=== PATIENT | female | born 1950 | race Caucasian/White ===

== ENCOUNTER → 2016-10-10 | Outpatient (CLI) | payer OTHER ==
--- NOTE | 2016-10-10 14:46 | RADRPT ---
PROCEDURE: XR Left hip and pelvis. CLINICAL INDICATION: Left hip pain and pelvic pain. TECHNIQUE: 3 views. Frontal pelvis. Frontal and lateral left hip. COMPARISON: None. FINDINGS: There is no fracture or dislocation. The soft tissues are normal. There are moderate degenerative changes of the right hip with joint space narrowing and osteophytes. There are moderate to severe degenerative changes of the left hip with joint space narrowing, oste ophytes, subarticular sclerosis, subarticular cysts, and mild deformity. There is no other lytic lesion. There is no radiopaque foreign body. IMPRESSION: 1. Moderate degenerative changes of the right hip. 2. Moderate to severe degenerative changes of the left hip. RPTAT: QQ .Chris Haddad MD, MD Date Time Electronically viewed and signed by .Chris Haddad MD, on 10/10/2016 14:45 .R/
== END | disposition home or self-care (01) ==
LOC: HKI 10:39
PROVIDERS: ATTEND Orthopaedic Surgery
DX: M16.12 Unilateral primary osteoarthritis, left hip (principal); I10 Essential (primary) hypertension; Z96.643 Presence of artificial hip joint, bilateral
CPT/HCPCS: 73502

== ENCOUNTER → 2016-11-26 | Outpatient (CLI) | END | disposition home or self-care (01) | DX: M25.552 Pain in left hip (principal); M16.12 Unilateral primary osteoarthritis, left hip ==

== ENCOUNTER 2016-12-01 05:52 | Inpatient (IN) | payer OTHER ==
[2016-11-30 15:10] VITALS: Ht 165.1 cm; Wt 77.0 kg
[~2016-12-01] VITALS: Ht 165.1 cm; Wt 77.0 kg
[2016-12-01] VITALS (28 sets, daily range): BP systolic 85–136; BP diastolic 51–86; PULSE 44–98; RESP 8–20
[~2016-12-01 05:52] MED LIST: CEFAZOLIN 2GM/50 ML (PMX) 50 ML X1 BEFORE INCISION IVPB ONE; CELECOXIB 400 MG PO X1 DOSE PO ONE; EXPAREL NOTE (BUPIVICAINE LIPOSOMAL) XX SCH; ONDANSETRON 4 MG IV X 1 DOSE IV ONE; PREGABALIN 300 MG PO X1 PO ONE; TRANEXAMIC ACID 770 MG in SOD CHLORIDE 0.9% 100 ML IVPB ONE; TRANEXAMIC ACID 770 MG in SOD CHLORIDE 0.9% 92.3 ML IV ONE; oxyCODONE (CR) 10 MG TAB [oxyCONTIN] X1 DOSE PO ONE; traMADOL 50 MG TAB X 1 DOSE PO ONE
[2016-12-01] MEDS: BUPIVACAINE LIPOSOME/PF 266 MG/20 ML VIAL INFIL ONE ×2 (06:00→09:40)
[2016-12-01] MEDS: PAIN COCKTAIL-CEFUROXIME IRR ONE ×14 (06:00→09:40)
[2016-12-01] MEDS: LACTATED RINGER'S 1,000 ML IV SCH ×5 (06:07→22:40)
[2016-12-01] MEDS ORDERED: ACET500C5 PO (06:39)
[2016-12-01] MEDS ORDERED: EPHEDrine SULFATE 50 MG/5 ML SYG ONE (07:00)
--- NOTE | 2016-12-01 07:06 | HPN ---
Date/Time of Note Date/Time of Note DATE: 12/01/16 TIME: 07:05 Interval H&P Admission Note Pt. seen H&P reviewed: No system changes No changes from H&P on 11/22/16 by BHAVNA Curran MD Dec 01, 2016 07:06
[2016-12-01] MEDS ORDERED: SODIUM CL BACTERIOSTATIC 30 ML INJ ONE (07:15)
[2016-12-01] MEDS ORDERED: VANCOMYCIN 1 GM INJ ONE (07:15)
[2016-12-01] MEDS ORDERED: POLYMYXIN B 500000 UNIT INJ ONE (07:15)
[2016-12-01] MEDS ORDERED: BACITRACIN 50000 UNITS INJ ONE (07:21)
[2016-12-01] MEDS ORDERED: ROCURONIUM 50 MG INJ ONE (07:22)
[2016-12-01] MEDS ORDERED: NEOSTIGMINE 3 MG/3 ML SYRINGE ONE (07:22)
[2016-12-01] MEDS ORDERED: GLYCOPYRROLATE 0.4 MG INJ ONE (07:22)
[2016-12-01] MEDS ORDERED: PROPOFOL 20 ML ONE (07:22)
[2016-12-01] MEDS ORDERED: CEFAZOLIN 1 GM INJ ONE (07:22)
[2016-12-01] MEDS ORDERED: DEXAMETHASONE 4 MG/ML 1 ML INJ ONE (07:24)
[2016-12-01] MEDS ORDERED: FENTAnyl 50 MCG/ML VIAL ONE (07:24)
[2016-12-01] MEDS ORDERED: ONDANSETRON 4 MG INJ ONE (07:24)
[2016-12-01] MEDS ORDERED: MIDAZOLAM 1 MG/ML 2 ML INJ ONE (07:24)
[2016-12-01] MEDS ORDERED: OXYCODONE/ACETAMINOPHEN (5/325) TAB PO PRN ×2 (08:30)
[2016-12-01] MEDS ORDERED: IPRATROPIUM (NEB) 0.5 MG/2.5 ML AMP HHN PRN (08:30)
[2016-12-01] MEDS ORDERED: ONDANSETRON 4 MG INJ IV PRN ×2 (08:30→10:30)
[2016-12-01] MEDS ORDERED: TRIMETHOBENZAMIDE 100 MG/ML VIAL IM PRN (08:30)
[2016-12-01] MEDS ORDERED: ALBUTEROL 0.083% (NEB) 2.5 MG/3 ML AMP HHN PRN (08:30)
[2016-12-01] MEDS ORDERED: HYDROmorphONE (0.2 MG/ML) 10ML SYG IV PRN ×3 (08:30)
[2016-12-01] MEDS ORDERED: FENTAnyl 50 MCG/ML VIAL IV PRN ×3 (08:30)
[2016-12-01] MEDS ORDERED: DIPHENHYDRAMINE 50 MG INJ IV PRN (08:30)
[2016-12-01] MEDS ORDERED: LABETALOL HCL 20MG INJ IV PRN (08:30)
[2016-12-01] MEDS ORDERED: hydrALAzine 20 MG INJ IV PRN (08:30)
[2016-12-01] MEDS ORDERED: MIDAZOLAM 1 MG/ML 2 ML INJ IV PRN (08:30)
[2016-12-01] MEDS ORDERED: EPHEDrine SULFATE 50 MG/5 ML SYG IV PRN (08:30)
[2016-12-01] MEDS ORDERED: MEPERIDINE 25 MG INJ IV PRN (08:30)
[2016-12-01] MEDS ORDERED: ETOMIDATE 20 MG INJ ONE (08:32)
[2016-12-01] MEDS ORDERED: PROPOFOL 100 ML ONE (08:32)
[2016-12-01] MEDS ORDERED: NACL 0.9% 3 ML SYG IV SCH (10:30)
[2016-12-01] MEDS ORDERED: DIPHENHYDRAMINE 25 MG CAP PO PRN (10:30)
[2016-12-01] MEDS ORDERED: ASPIRIN (EC) 325 MG TAB PO ONE (10:30)
[2016-12-01] MEDS ORDERED: BISACODYL 10 MG SUPP PR PRN (10:30)
[2016-12-01] MEDS ORDERED: HYDROCODONE/APAP (5/325) TAB PO PRN ×2 (10:30)
[2016-12-01] MEDS ORDERED: HYDROmorphONE 1 MG/ML SYG IV PRN (10:30)
[2016-12-01] MEDS ORDERED: MAGNESIUM HYDROXIDE 30ML CUP PO PRN (10:30)
[2016-12-01] MEDS ORDERED: NA PHOSPHATE/BIPHOS 133 ML ENEMA PR PRN (10:30)
--- NOTE | 2016-12-01 10:30 | OPR ---
Date/Time of Note Date/Time of Note DATE: 12/01/16 TIME: 10:27 Operative Report Procedure Description DATE: 12/01/2016 PREOPERATIVE DIAGNOSIS: Left hip osteoarthritis POSTOPERATIVE DIAGNOSIS: Left hip osteoarthritis OPERATION PERFORMED: Left anterior total hip arthroplasty SURGEON: Bhavna Sanabria MD [employer] RECAUSTICIZING OPERATOR: Cholo Montgomery PA-C COMPONENTS USED: DePuy size 48 mm Gription Lowell cup, 48/32 neutral Altrex polyethylene liner, size 3 high offset Actis stem, 32+5 ceramic head ANESTHESIA: Spinal plus general endotracheal intubation. ANESTHESIOLOGIST: Man Vazquez M.D. ESTIMATED BLOOD LOSS: 400 cc INTRAVENOUS FLUIDS: Crystalloid 3,000 cc SPECIMENS: Femoral head. DRAINS: Hemovac 1 COMPLICATIONS: None. DISPOSITION: The patient tolerated the procedure well and was taken to the recovery room in stable condition. INDICATIONS: The patient is a a 66-year-old woman who has had progressively worsening pain in the left hip with radiographic evidence of severe osteoarthritis. She has failed nonsurgical means of treatment to address her pain including activity modifications, pain medications, and ambulatory assist devices. Despite these measures she has had worsening pain and I feel she will benefit from a total hip arthroplasty through an anterior approach The risks, benefits, and alternatives of the procedure were explained in detail to the patient. I explained the risks of the surgery to include, but not be limited to: bleeding and possible need for blood transfusion; infection; pain; stiffness; neurovascular injury with possible numbness, weakness, and/or paralysis anywhere from the hip down to the toes; fracture; instability; dislocation; leg length inequality; wear and/or loosening of the prosthesis and possible need for future revision; blood clots; pulmonary embolism; and anesthetic complications such as heart attack, stroke, GI bleed, pneumonia, and/ or . Ample time was allowed for the patient to ask questions, all of which were addressed and answered. The patient understood the risks involved and wished to proceed. Informed consent was signed prior to the procedure. PROCEDURE: The patient's left hip was initialed with a marking pen in the preoperative area to identify the correct operative site. The patient was brought to the operating room and transferred [facility] the [facility] to the [facility] where a spinal anesthetic was administered. The patient was then anesthetized and intubated. A Mann catheter was placed. Both feet were placed into well padded boots which were then placed into the leg holders of the traction booms. A timeout was performed to confirm that the left side was the correct operative site. The patient was given 2 g of intravenous Ancef within one hour prior to the procedure. The operative hip was prepped and draped in the usual sterile fashion. A 10 cm oblique incision was made over the anterior aspect of the hip and carried down through subcutaneous tissue and fat with sharp dissection. The tensor fascia norah was incised along the length of the wound. The tensor fascia muscle was retracted laterally and the sartorius medially. The anterior circumflex vessels were identified and tied off with 2-0 silk suture and coagulated with the Tissue Link cerner analyst. The rectus femoris was elevated off the anterior capsule and an anterior capsulectomy performed. A femoral neck osteotomy was made and the head removed from the acetabulum. The acetabulum was denuded of cartilage circumferentially, as was the femoral head. Retractors were placed around the acetabulum. The remnants of the labrum and ligamentum teres were excised. I reamed the acetabulum to the medial wall and then went into an anatomic position and increased the reamer size in 2 mm increments until I got a good bite and was down to bleeding subchondral bone. The Lowell cup was opened and impacted into the acetabulum and sat flush circumferentially, getting a good bite. C-arm imaging showed it had about 40 to 45 degrees of abduction and 20 degrees of anteversion. The real liner was opened and impacted into the acetabulum and sat flush circumferentially. Attention was turned towards the femur. The operative leg was carefully lowered to the floor with the leg adducted. The foot was then externally rotated to approximately 110 degrees. A posteromedial release was performed to optimize exposure. The femoral hook was placed underneath the proximal femur and the hydraulic lift was then used to elevate the femur up out of the wound. The papito cutter osteotome was used to remove the remaining overhanging greater trochanter. The femur was then broached, going up in one size increments until it sat flush with the neck cut and a stable fit was achieved. The trial neck and head were assembled and reduced into the acetabulum. Fluoroscopic imaging showed the components to be in good position and the leg lengths and offsets to be equal. At this point, the trial was dislocated and the trial broach removed. The canal was irrigated and dried. The real stem was opened and impacted into the femur. The trunnion was irrigated and dried, and the real femoral head was impacted onto the trunnion, and reduced into the acetabulum. The soft tissues were infiltrated with a mixture of 150 mg of 0.5% Bupivacaine, 8 mg of Duramorph, 300 mcg of epinephrine, 30 mg of Toradol, 100 mcg of clonidine, 750 mg of cefuroxime and 86 mL of normal saline, followed by an injection of 266 mg of liposomal Bupivacaine. At this point the hip was irrigated with a mixture of betadine/saline and then antibiotic saline with pulsatile lavage. A Hemovac drain was placed in the deep portion of the wound and brought out the anterolateral thigh. There was good hemostasis. The tensor fascia norah was repaired with a running #1 Vicryl. The deep fat layer was irrigated and closed with 2-0 Stratafix and the subcutaneous layer closed with 3 -0 Vicryl and the skin was closed with irena and then sealed with Dermabond. The drain was secured with 3-0 nylon. The sponge and needle counts were correct at the end of the case. The wound was covered with an occlusive dressing. The patient was awakened, extubated, and taken to the recovery room in stable condition. BHAVNA SANABRIA MD Dec 01, 2016 10:30
--- NOTE | 2016-12-01 10:33 | PN ---
Date/Time of Note Date/Time of Note DATE: 12/01/16 TIME: 10:32 Assessment/Plan Lines/Catheters IV Catheter Type (from Nrsg): Peripheral IV Assessment/Plan Assessment/Plan Stable in PACU, s/p left anterior LETICIA -continue Ancef -pain meds as needed -ASA/SCDs -OOB with PT -check AM labs -monitor drain -d/c [place] in AM XR of the left hip is pending at this time Subjective 24 Hr Interval Summary Stable in PACU. Denies pain. Moving all extremities. Exam/Review of Systems Vital Signs Vitals Vital Signs Date Time Temp Pulse Resp B/P Pulse Ox O2 Delivery O2 Flow Rate FiO2 12/01/16 06:25 97.8 58 18 136/72 98 Room Air Exam Free Text/Dictation Hemovac: minimal Dressing dry Incision clean, dry, and intact without redness or drainage 5/5 Quadriceps, Tibialis Anterior, EHL, Gastroc, Soleus, Peroneals Normal sensation Palpable DT/PT, CR <2 sec No distal edema GALE WANG PA-C Dec 01, 2016 10:33
[2016-12-01 11:08] LABS: HEMATOCRIT 37.1 % (37.0-47.0); HEMOGLOBIN 12.6 g/dl (12.0-16.0)
[2016-12-01 11:22] LABS: CALCIUM 8.7 mg/dl (8.4-10.2); CREATININE 0.79 mg/dl (0.44-1.00); POTASSIUM 3.5 mmol/L (3.5-5.1)
[2016-12-01] MEDS: traMADol 50 MG TAB PO SCH ×2 (11:30→18:07)
[2016-12-01] MEDS: CEFAZOLIN 2 GM/50 ML (PMX) 50 ML IVPB SCH ×2 (11:32→18:06)
--- NOTE | 2016-12-01 12:09 | RADRPT ---
PROCEDURE: XR Pelvis. CLINICAL INDICATION: Pelvic pain. Postoperative evaluation TECHNIQUE: Single AP view of the pelvis was obtained. COMPARISON: 10/10/2016 FINDINGS: A left hip arthroplasty is seen and is without evidence of hardware loosening of lucency. A drain i s seen in place in the operative bed. Skin irena are seen with scattered soft tissue air. Modera te osteoarthritis of the right hip is seen. No acute fracture dislocation is seen. The remaining so ft tissue structures are intact. IMPRESSION: Status post left hip arthroplasty with acute postoperative changes. RPTAT: HPNM Physician Carter Date Time Electronically viewed and signed by Physician Carter on 12/01/2016 12:09 /
--- NOTE | 2016-12-01 12:10 | RADRPT ---
PROCEDURE: XR Hip. CLINICAL INDICATION: Left hip pain. Postoperative evaluation TECHNIQUE: A single view of the left hip were obtained. COMPARISON: None FINDINGS: No acute fracture or dislocations are seen. A left hip arthroplasty is seen and is without evidence of hardware loosening of lucency. A drain is seen in place. Skin irena are seen with scattered soft tissue air. The remaining soft tissue structures are intact. IMPRESSION: Status post left hip arthroplasty with acute postoperative changes. RPTAT: HPNM Physician Carter Date Time Electronically viewed and signed by Physician Carter on 12/01/2016 12:10 /
[2016-12-01] MEDS ORDERED: TRANEXAMIC ACID 770 MG in SOD CHLORIDE 0.9% 100 ML IVPB ONE ×2 (13:30→16:30)
[2016-12-01] MEDS: PANTOPRAZOLE (EC) 40 MG TAB PO SCH (18:07)
[2016-12-01] MEDS: DOCUSATE SODIUM 100 MG CAP PO SCH (21:00)
--- NOTE | 2016-12-01 21:52 | CONS ---
DATE OF ADMISSION: 12/01/2016 DATE OF CONSULTATION: 12/01/2016 Thank you, Dr. Dooley, for asking me to participate in the medical management of this patient. REASON FOR CONSULTATION: To manage the patient's hypertension. HISTORY OF PRESENT ILLNESS: This 66-year-old female is now postop a left total hip replacement. The patient has a history of osteoarthritis of the left hip. She was having increasing pain in the left hip. She failed medical therapy and decided to undergo a total hip replacement. The patient is awake and alert. She denies any chest pain or shortness of breath. MEDICATION: Lisinopril 20 mg a day, which she took this morning. PAST MEDICAL HISTORY: Remarkable for osteoarthritis and hypertension. PAST SURGICAL HISTORY: History of arthroscopic knee surgery bilateral and history of neuroplasty decompression median nerve at the carpal tunnel bilateral. SOCIAL HISTORY: She drinks alcohol socially. She is and she lives with her son. She is retired photographic developer and printer. FAMILY HISTORY: Father at 82 of unknown causes. There is a family history of cerebral aneurysm in the mother who at age 46. ALLERGIES: THE PATIENT HAS NO KNOWN DRUG ALLERGIES. PHYSICAL EXAMINATION: GENERAL APPEARANCE: At this time reveals a well-developed female in no apparent distress. RECTAL: Temperature 97.5, pulse of 68, respirations 9, blood pressure 106/64, and O2 sat 95 percent on room air. HEENT: Head normocephalic. Eyes, extraocular muscles intact. Nose and mouth are normal. NECK: Supple. No neck vein distention. LUNGS: Clear to auscultation. HEART: Regular rhythm. No murmurs, gallops, or rubs. ABDOMEN: Soft, nontender. No masses or megaly. EXTREMITIES: No peripheral edema. IMPRESSION: This patient is doing well postoperatively. Her blood pressure is normal. I will manage the patient's blood pressure. The patient did take her blood pressure medicine today. PLAN: 1. Resume some routine medications. 2. Check labs in the morning. 3. Postop total hip replacement protocol. 4. I will follow the patient along with you. Dictated By: Tim Henderson MD /kike/[email or web address] /Document#: [id number]
[2016-12-02 00:01] VITALS: BP 97/52
[2016-12-02] MEDS: traMADol 50 MG TAB PO SCH ×5 (00:02→23:33)
[2016-12-02] MEDS: CEFAZOLIN 2 GM/50 ML (PMX) 50 ML IVPB SCH (02:40)
[2016-12-02 04:00] VITALS: BP 105/65; PULSE 62; RESP 18
[2016-12-02 05:07] LABS: HEMATOCRIT 26.6 % (37.0-47.0); HEMOGLOBIN 9.2 g/dl (12.0-16.0)
[2016-12-02] MEDS: PANTOPRAZOLE (EC) 40 MG TAB PO SCH ×2 (05:38→18:16)
[2016-12-02 05:45] LABS: CALCIUM 8.2 mg/dl (8.4-10.2); CREATININE 0.73 mg/dl (0.44-1.00); POTASSIUM 3.8 mmol/L (3.5-5.1)
[2016-12-02] MEDS: LACTATED RINGER'S 1,000 ML IV SCH (06:36)
[2016-12-02 08:37] VITALS: BP 93/60; RESP 18
[2016-12-02 09:07] LABS: ADD UMIC NO; UR ASCORBIC ACID NEGATIVE (NEGATIVE); UR BILIRUBIN (Dip) NEGATIVE (NEGATIVE); UR BLOOD (Dip) NEGATIVE (NEGATIVE); UR CLARITY CLEAR (CLEAR); UR COLOR STRAW (YELLOW); UR GLUCOSE (Dip) NEGATIVE (NEGATIVE); UR KETONES (Dip) NEGATIVE (NEGATIVE); UR LEUKOCYTE ESTERASE (Dip) NEGATIVE Leu/ul (NEGATIVE); UR NITRITE (Dip) NEGATIVE (NEGATIVE); UR SPECIFIC GRAVITY (Dip) 1.008 (1.003-1.030); UR TOTAL PROTEIN (Dip) NEGATIVE (NEGATIVE); UR UROBILINOGEN (Dip) NEGATIVE (NEGATIVE)
[2016-12-02] MEDS: DOCUSATE SODIUM 100 MG CAP PO SCH ×2 (09:35→22:22)
[2016-12-02] MEDS: ASPIRIN (EC) 325 MG TAB PO SCH ×2 (09:36→22:22)
--- NOTE | 2016-12-02 12:49 | CONS ---
Date/Time of Note Date/Time of Note DATE: 12/02/16 TIME: 12:41 Assessment/Plan Assessment/Plan Chief Complaint/Hosp Course 1. She is 1 day post op a L THR . She Is doing well . Her BP is relatively low and H/H is low . Will continue IV fluids for now and check labs in am . 2. hyponatremia , mild , will adjust IV fluids . Problems: Consultation Date/Type/Reason Admit Date/Time Dec 01, 2016 at 10:31 Initial Consult Date 24 HR Interval Summary Free Text/Dictation She is 1 day post op a L THR .; She has no complaints . Constitutional: improved, no complaints Exam/Review of Systems Vital Signs Vitals Vital Signs Date Time Temp Pulse Resp B/P Pulse Ox O2 Delivery O2 Flow Rate FiO2 12/02/16 08:37 98.8 83 18 93/60 98 12/02/16 04:00 Room Air 12/01/16 14:09 2.0 Intake and Output 12/01/16 12/01/16 12/02/16 15:00 23:00 07:00 Intake Total 4370 ml 1750 ml 1530 ml Output Total 2180 ml 160 ml 1700 ml Balance 2190 ml 1590 ml -170 ml Exam Constitutional: alert, oriented, well developed Head: normocephalic Respiratory: clear to auscultation, normal air movement Cardiovascular: regular rate and rhythm Musculoskeletal: nl extremities to inspection Results Result Diagram: 12/02/16 0439 12/02/16 0439 Results 24 hrs Laboratory Tests Test 12/02/16 04:30 12/02/16 04:39 Urine Color STRAW Urine Clarity CLEAR Urine pH 6.0 Urine Specific [place] 1.008 Urine Ketones NEGATIVE Urine Nitrite NEGATIVE Urine Bilirubin NEGATIVE Urine Urobilinogen NEGATIVE Urine Leukocyte Esterase NEGATIVE Urine Hemoglobin NEGATIVE Urine Glucose NEGATIVE Urine Total Protein NEGATIVE Hemoglobin 9.2 #L Hematocrit 26.6 #L Sodium Level 133 L Potassium Level 3.8 Chloride Level 104 Carbon Dioxide Level 23 Anion Gap 10 Blood Urea Nitrogen 14 Creatinine 0.73 Glucose Level 105 # Calcium Level 8.2 L Medications Medications Current Medications Miscellaneous Information 1 ea 1 ea NOTE XX ; Start 12/01/16 at 05:00; Stop at 04:59 Lactated Ringer's (Lr) 1,000 ml @ 125 mls/hr Q8H IV Last administered on 06:36; Admin Dose 125 MLS/HR; Start 12/01/16 at 10:27 Tramadol HCl (Ultram) 50 mg Q6 PO Last administered on 12/02/16 12:14; Admin Dose 50 MG; Start 12/01/16 at 12:00; Stop 12/04/16 at 11:59 Acetaminophen/ Hydrocodone Bitart ([place] (5/325)) 1 tab Q4H PRN PO PAIN LEVEL 1 -3; Start 12/01/16 at 10:30 Acetaminophen/ Hydrocodone Bitart ([place] (5/325)) 2 tab Q4H PRN PO PAIN LEVEL 4 -7; Start 12/01/16 at 10:30 Hydromorphone HCl (Dilaudid) 1 mg Q3H PRN IV PAIN LEVEL 8-10; Start 12/01/16 at 10:30 Ondansetron HCl (Zofran Inj) 4 mg Q6H PRN IV NAUSEA AND/OR VOMITING; Start at 10:30 Bisacodyl (Dulcolax Supp) 10 mg Q12H PRN [place] CONSTIPATION; Start 12/01/16 at 10: 30 Magnesium Hydroxide (Milk Of Mag) 30 ml BID PRN PO CONSTIPATION; Start at 10:30 Sodium Biphosphate/ Sodium Phosphate (Fleet Enema) 133 ml DAILY PRN [place] CONSTIPATION; Start 12/01/16 at 10:30 Docusate Sodium (Colace) 100 mg BID PO Last administered on 12/02/16 09:35; Admin Dose 100 MG; Start 12/01/16 at 21:00 Diphenhydramine HCl (Benadryl) 25 mg Q6H PRN PO PRURITUS; Start 12/01/16 at 10: 30 Aspirin (Ecotrin) 325 mg BID PO Last administered on 12/02/16 09:36; Admin Dose 325 MG; Start 12/02/16 at 09:00 Pantoprazole (Protonix Tab) 40 mg BID@18 PO Last administered on 12/02/16 05:38; Admin Dose 40 MG; Start 12/01/16 at 18:00 AFRICA TORRES MD Dec 02, 2016 12:49
[2016-12-02] MEDS: SOD CHLORIDE 0.9% 1,000 ML IV SCH ×2 (13:00→21:00)
--- NOTE | 2016-12-02 15:16 | PN ---
Date/Time of Note Date/Time of Note DATE: 12/02/16 TIME: 15:15 Assessment/Plan Lines/Catheters IV Catheter Type (from Nrsg): Peripheral IV Mann in Place (from Nrsg): No Assessment/Plan Assessment/Plan POD # 1. Stable. -Drain d/c'd -OOB with PT -Pain meds -ASA/SCDs -D/C planning (home tomorrow or Saturday) Subjective 24 Hr Interval Summary Resting comfortably. Minimal pain. Walked with PT yesterday. Awaiting PT today. Exam/Review of Systems Vital Signs Vitals Vital Signs Date Time Temp Pulse Resp B/P Pulse Ox O2 Delivery O2 Flow Rate FiO2 12/02/16 08:37 98.8 83 18 93/60 98 12/02/16 04:00 Room Air 12/01/16 14:09 2.0 Intake and Output 12/01/16 12/01/16 12/02/16 15:00 23:00 07:00 Intake Total 4370 ml 1750 ml 1530 ml Output Total 2180 ml 160 ml 1700 ml Balance 2190 ml 1590 ml -170 ml Exam Free Text/Dictation Hemovac: 290 cc Dressing dry Incision clean, dry, and intact without redness or drainage Thigh soft 5/5 Quadriceps, Tibialis Anterior, EHL, Gastroc Soleus, Peroneals Normal sensation Palpable DP/PT, CR < 2 Sec No distal edema Results Result Diagram: 12/02/16 0439 12/02/16 0439 BHAVNA SANABRIA MD Dec 02, 2016 15:16
[2016-12-02 15:30] VITALS: BP 92/47; RESP 18
[2016-12-02 19:58] VITALS: BP 99/56; RESP 18
[2016-12-03 02:35] VITALS: BP 120/59; RESP 18
[2016-12-03] MEDS: SOD CHLORIDE 0.9% 1,000 ML IV SCH ×2 (04:38→12:33)
[2016-12-03 05:38] LABS: HEMATOCRIT 27.7 % (37.0-47.0); HEMOGLOBIN 9.4 g/dl (12.0-16.0)
[2016-12-03] MEDS: traMADol 50 MG TAB PO SCH ×2 (05:49→12:23)
[2016-12-03] MEDS: PANTOPRAZOLE (EC) 40 MG TAB PO SCH (05:49)
[2016-12-03 06:24] LABS: CALCIUM 8.4 mg/dl (8.4-10.2); CREATININE 0.76 mg/dl (0.44-1.00); POTASSIUM 3.9 mmol/L (3.5-5.1)
[2016-12-03 07:45] VITALS: BP 111/66; RESP 20
--- NOTE | 2016-12-03 08:03 | PDOCDIS ---
Discharge Instructions DIAGNOSIS Discharge Diagnosis s/p left anterior LETICIA CONDITION Patient Condition: Good HOME CARE INSTRUCTIONS: Diet Instructions: Regular ACTIVITY: Activity Restrictions: Slowly Increase Activity Rest between Activity Avoid heavy lifting Do not Drive Do not operate Machinery Do not operate Power Tool Avoid Heavy Housework Keep Limb Elevated Weight Bearing Bathing Restrictions: ShowerActivity Restrictions Comment: Remove dressing after shower and place new dressing GALE WANG PA-C Dec 03, 2016 08:03
[2016-12-03] MEDS ORDERED: ASPI325T32 PO (08:04)
[2016-12-03] MEDS ORDERED: PANT40TA4 PO (08:04)
[2016-12-03] MEDS ORDERED: HYDR-3498 PO (08:04)
[2016-12-03] MEDS ORDERED: TRAM50TA2 PO (08:04)
--- NOTE | 2016-12-03 08:43 | PN ---
Date/Time of Note Date/Time of Note DATE: 12/03/16 TIME: 08:42 Assessment/Plan Lines/Catheters IV Catheter Type (from Nrsg): Peripheral IV Mann in Place (from Nrsg): No Assessment/Plan Assessment/Plan Stable POD #1, s/p left anterior LETICIA -pain meds as needed -ASA/SCDs -OOB with PT -dressing changed -d/c home today -follow up in the office in 1 week Subjective 24 Hr Interval Summary No acute overnight events. Denies significant pain. Making good progress with PT. Would like to go home today. Exam/Review of Systems Vital Signs Vitals Vital Signs Date Time Temp Pulse Resp B/P Pulse Ox O2 Delivery O2 Flow Rate FiO2 12/03/16 07:45 98.3 72 20 111/66 96 12/02/16 04:00 Room Air 12/01/16 14:09 2.0 Intake and Output 12/02/16 12/02/16 12/03/16 15:00 23:00 07:00 Intake Total 875 ml 1450 ml 1320 ml Output Total 3500 ml Balance 875 ml -2050 ml 1320 ml Exam Free Text/Dictation Dressing dry Incision clean, dry, and intact without redness or drainage 5/5 Quadriceps, Tibialis Anterior, EHL, Gastroc, Soleus, Peroneals Normal sensation Palpable DT/PT, CR <2 sec No distal edema Results Result Diagram: 12/03/16 0452 12/03/16 0452 GALE WANG PA-C Dec 03, 2016 08:43
--- NOTE | 2016-12-03 08:44 | PDOCDIS ---
Discharge Instructions DIAGNOSIS Discharge Diagnosis s/p left anterior LETICIA CONDITION Patient Condition: Good HOME CARE INSTRUCTIONS: Diet Instructions: Regular ACTIVITY: Activity Restrictions: Slowly Increase Activity Rest between Activity Avoid heavy lifting Do not Drive Do not operate Machinery Do not operate Power Tool Avoid Heavy Housework Keep Limb Elevated Weight Bearing Bathing Restrictions: ShowerActivity Restrictions Comment: Remove dressing after shower and place new dressing FOLLOW UP/APPOINTMENTS Follow-up Plan follow up in the office on 12/12/16 GALE WANG PA-C Dec 03, 2016 08:44
[2016-12-03] MEDS: DOCUSATE SODIUM 100 MG CAP PO SCH (09:49)
[2016-12-03] MEDS: ASPIRIN (EC) 325 MG TAB PO SCH (09:49)
--- NOTE | 2016-12-03 10:40 | CONS ---
Date/Time of Note Date/Time of Note DATE: 12/03/16 TIME: 10:36 Assessment/Plan Assessment/Plan Chief Complaint/Hosp Course 1. She is 2 days post op a L THR . She Is doing well . She is up walking with walker . She can be discharged to home today . 2. hyponatremia , corrected . Problems: Consultation Date/Type/Reason Admit Date/Time Dec 01, 2016 at 10:31 24 HR Interval Summary Free Text/Dictation she is now 2 days post op a L THR . She is doing well . Constitutional: improved, no complaints Exam/Review of Systems Vital Signs Vitals Vital Signs Date Time Temp Pulse Resp B/P Pulse Ox O2 Delivery O2 Flow Rate FiO2 12/03/16 07:45 98.3 72 20 111/66 96 12/02/16 04:00 Room Air 12/01/16 14:09 2.0 Intake and Output 12/02/16 12/02/16 12/03/16 15:00 23:00 07:00 Intake Total 875 ml 1450 ml 1320 ml Output Total 3500 ml Balance 875 ml -2050 ml 1320 ml Exam Constitutional: alert, oriented, well developed Neck: non-tender, supple Respiratory: clear to auscultation, normal air movement Cardiovascular: regular rate and rhythm Musculoskeletal: nl extremities to inspection Results Result Diagram: 12/03/16 0452 12/03/16 0452 Results 24 hrs Laboratory Tests Test 12/03/16 04:52 Hemoglobin 9.4 L Hematocrit 27.7 L Sodium Level 143 Potassium Level 3.9 Chloride Level 106 Carbon Dioxide Level 28 Anion Gap 13 Blood Urea Nitrogen 12 Creatinine 0.76 Glucose Level 103 Calcium Level 8.4 Medications Medications Current Medications Miscellaneous Information 1 ea NOTE XX ; Start 12/01/16 at 05:00; Stop 12/04/16 at 04:59 Tramadol HCl (Ultram) 50 mg Q6 PO Last administered on 12/03/16t 05:49; Admin Dose 50 MG; Start 12/01/16 at 12:00; Stop 12/04/16 at 11:59 Acetaminophen/ Hydrocodone Bitart ([place] (5/325)) 1 tab Q4H PRN PO PAIN LEVEL 1 -3; Start 12/01/16 at 10:30 Acetaminophen/ Hydrocodone Bitart ([place] (5/325)) 2 tab Q4H PRN PO PAIN LEVEL 4 -7; Start 12/01/16 at 10:30 Hydromorphone HCl (Dilaudid) 1 mg Q3H PRN IV PAIN LEVEL 8-10; Start 12/01/16 at 10:30 Ondansetron HCl (Zofran Inj) 4 mg Q6H PRN IV NAUSEA AND/OR VOMITING; Start at 10:30 Bisacodyl (Dulcolax Supp) 10 mg Q12H PRN [place] CONSTIPATION; Start 12/01/16 at 10: 30 Magnesium Hydroxide (Milk Of Mag) 30 ml BID PRN PO CONSTIPATION; Start at 10:30 Sodium Biphosphate/ Sodium Phosphate (Fleet Enema) 133 ml DAILY PRN [place] CONSTIPATION; Start 12/01/16 at 10:30 Docusate Sodium (Colace) 100 mg BID PO Last administered on 12/03/16 09:49; Admin Dose 100 MG; Start 12/01/16 at 21:00 Diphenhydramine HCl (Benadryl) 25 mg Q6H PRN PO PRURITUS; Start 12/01/16 at 10: 30 Aspirin (Ecotrin) 325 mg BID PO Last administered on 12/03/16 09:49; Admin Dose 325 MG; Start 12/02/16 at 09:00 Pantoprazole 40 mg 40 mg BID@06,18 PO Last administered on 12/03/16 05:49; Admin Dose 40 MG; Start 12/01/16 at 18:00 Sodium Chloride (NS) 1,000 ml @ 125 mls/hr Q8H IV Last administered on 13:00; Admin Dose 125 MLS/HR; Start 12/02/16 at 13:00 AFRICA TORRES MD Dec 03, 2016 10:40
--- NOTE | 2016-12-03 12:08 | RADRPT ---
PROCEDURE: Intraoperative fluoroscopy CLINICAL INDICATION: pain TECHNIQUE: Fluoroscopic spot images from an intraoperative procedure submitted. Fluoro time: 1.2 minutes Number of images/fluoroscopic sequences: 8 COMPARISON: none FINDINGS: Fluoroscopic images were obtained during a left hip replacement. The left hip prosthesis was placed . RPTAT: AA IMPRESSION: Fluoroscopic images from left hip replacement. Please refer to the operative note for more information. .Abel Crisostomo MD, MD Date Time Electronically viewed and signed by .Abel Crisostomo MD, on 12/03/2016 12:07 .S/
--- NOTE | 2016-12-03 13:09 | DS ---
Date/Time of Note Date/Time of Note DATE: 12/03/16 TIME: 13:07 Discharge Summary Admission/Discharge Info Admit Date/Time Dec 01, 2016 at 10:31 Discharge Date/Time 12/03/2016 Discharge Diagnosis s/p left anterior LETICIA Patient Condition: Good Procedures Left anterior total hip arthroplasty Hospital Course This is a 66-year-old female, who presented to clinic initially complaining of left hip pain. X-rays demonstrated advanced osteoarthritis of the left hip, and is thought she would benefit from a left anterior total hip arthroplasty. On 12/01/2016, the patient was admitted and taken to the operating room, where she underwent a left anterior total hip arthroplasty. There were no intraoperative complications. The patient tolerated the procedure well. She was taken to recovery room in stable condition. Pain was well-controlled oral pain medication. She was started on aspirin and SCDs for DVT prophylaxis. She remained hemodynamically stable and neurovascular.ly intact throughout her hospital stay. She began physical therapy on postoperative day 0, and to continue to make a progress. Ultimately she was deemed stable for discharge home on postoperative day 3. Prior to discharge, the incision was inspected and noted to be clean, dry, and intact. Dressing changes were done prior to patient going home. Discharge instructions: The patient will be discharged home in stable condition. She is to resume a normal diet. She is weightbearing as tolerated on left lower externally. She will begin physical therapy with home health. She was discharged home with a medication noted, and is to resume all her normal home medication. She is to call the office or go to emergency room for any concerns including increased redness, swelling, drainage, fever, or any concerns regarding the operation or site of incision. Home Meds Active Scripts Tramadol HCl (Tramadol HCl) 50 Mg Tablet, 50 MG PO Q6 for 30 Days, #60 TAB Prov:GALE WANG PA-C 12/03/16 Pantoprazole* (Pantoprazole*) 40 Mg Tablet.dr 40 MG PO BID@06,18 for 40 Days, # 40 Prov:GALE WANG PA-C 12/03/16 Hydrocodone Bit-Acetaminophen (Hydrocodone Bit-APAP) 5-325MG Tablet, 1 TAB PO Q4H Y for PAIN LEVEL 1-3 for 30 Days, #60 TAB Prov:GALE WANG PA-C 12/03/16 Aspirin (Aspir-Pamela) 325 Mg Tablet., 325 MG PO BID for 40 Days, #80 Prov:GALE WANG PA-C 12/03/16 Discontinued Reported Medications Acetaminophen* (Tylophen*) 500 Mg Capsule, 500 MG PO Q6H, TAB 12/01/16 Follow-up Plan Follow-up in the office on 12/12/2016 Primary Care Provider Care Physician No Primary Pending Labs Laboratory Tests Test 12/03/16 04:52 Hemoglobin 9.4g/dl (12.0-16.0) Hematocrit 27.7% (37.0-47.0) Sodium Level 143mmol/L (135-144) Potassium Level 3.9mmol/L (3.5-5.1) Chloride Level 106mmol/L (97-110) Carbon Dioxide Level 28mmol/L (21-31) Anion Gap 13 (8-16) Blood Urea Nitrogen 12mg/dl (7-20) Creatinine 0.76mg/dl (0.44-1.00) Glucose Level 103mg/dl (70-220) Calcium Level 8.4mg/dl (8.4-10.2) GALE WANG PA-C Dec 03, 2016 13:09
== END 2016-12-03 14:25 | disposition home health service (06) | DRG 470 ==
LOC: SUR 05:52 → SDS 06:10 → EDSTATUS 07:30 → MS1 10:31 → SUR 19:36
PROVIDERS: ADMIT Orthopaedic Surgery; ATTEND Orthopaedic Surgery
PROC: 0SRB04A Replacement of Left Hip Joint with Ceramic on Polyethylene Synthetic Substitute, Uncemented, Open Approach (ICD-10-PCS; principal; 2016-12-01 07:30)
DX: M16.12 Unilateral primary osteoarthritis, left hip (principal); E87.1 Hypo-osmolality and hyponatremia; I10 Essential (primary) hypertension
CPT/HCPCS: 72170; 73500; 73530; 80048; 81003; 85014; 85018; 86850; 86900; 86901; 86920; 87081; 87086; 88304; 97110; 97116; 97162; 97530; C1776; C9290; J0171; J0690; J0697; J0735; J1100; J1885; J2250; J2274; J2405; J2710; J3010; J3370; J7030; J7120

== ENCOUNTER → 2016-12-12 | Outpatient (CLI) | payer OTHER ==
[~2016-12-12] MED LIST changes: +ASPI325T32 PO; -CEFAZOLIN 2GM/50 ML (PMX) 50 ML X1 BEFORE INCISION IVPB ONE; -CELECOXIB 400 MG PO X1 DOSE PO ONE; -EXPAREL NOTE (BUPIVICAINE LIPOSOMAL) XX SCH; +HYDR-3498 PO; -ONDANSETRON 4 MG IV X 1 DOSE IV ONE; +PANT40TA4 PO; -PREGABALIN 300 MG PO X1 PO ONE; +TRAM50TA2 PO; -TRANEXAMIC ACID 770 MG in SOD CHLORIDE 0.9% 100 ML IVPB ONE; -TRANEXAMIC ACID 770 MG in SOD CHLORIDE 0.9% 92.3 ML IV ONE; -oxyCODONE (CR) 10 MG TAB [oxyCONTIN] X1 DOSE PO ONE; -traMADOL 50 MG TAB X 1 DOSE PO ONE
--- NOTE | 2016-12-12 13:36 | RADRPT ---
PROCEDURE: XR Left Hip and pelvis. CLINICAL INDICATION: Left hip pain. Pelvic pain. Postop. TECHNIQUE: Two views. Frontal pelvis and frontal left hip. COMPARISON: 12/01/2016. FINDINGS: There is no fracture or dislocation. Left lateral skin irena and surgical drain have been removed. There is a left hip total arthroplasty which appears satisfactory. There are moderate degenerative changes of the right hip O joint space narrowing and osteophytes. There is no lytic or blastic lesion. The sacroiliac joints are grossly normal. IMPRESSION: 1. Satisfactory postoperative appearance of the left hip. 2. Moderate degenerative changes of the right hip. 3. Otherwise unremarkable study. RPTAT: QQ .Chris Haddad MD, MD Date Time Electronically viewed and signed by .Chris Haddad MD, on 12/12/2016 13:35 .R/
--- NOTE | 2016-12-13 06:40 | HKNOTE ---
DATE OF SERVICE: 12/12/2016 HISTORY OF PRESENT ILLNESS: The patient presents today for her first postoperative evaluation. She is 10 days status post left anterior total hip arthroplasty. She is doing well overall. She denies any fevers or chills. Denies any significant pain. She is doing physical therapy with home health. In addition, she is taking aspirin twice daily for DVT prophylaxis. She presents today for her first postoperative evaluation. PHYSICAL EXAMINATION: On exam today, she is alert, oriented x4, in no acute distress. Exam of left hip demonstrates the incision to be clean, dry, and intact. Sosa are in place. Her leg lengths are equal. There is no erythema, warmth, pus, or drainage noted. She has no pain with passive range of motion of the left hip joint. Compartments are soft. Homans sign is negative. She is neurovascularly intact distally. IMAGING: X-rays of the left hip were obtained today and reviewed by me. They demonstrate good anatomic alignment with no fractures or dislocations identified. ASSESSMENT: Ten days status post left anterior total hip arthroplasty. PLAN: The sosa were removed today and Steri-Strips were applied. She is to continue taking aspirin 325 mg twice daily for DVT prophylaxis. Additionally, she is to continue physical therapy with home health. She will follow up with Dr. Dooley at his [facility] office in 4 weeks for repeat evaluation. Dictated By: Pranav Montgomery PA-C /[email or web address] /Document#: [id number]
== END | disposition home or self-care (01) ==
LOC: HKI 11:46
PROVIDERS: ATTEND Orthopaedic Surgery
DX: Z47.1 Aftercare following joint replacement surgery (principal); Z96.642 Presence of left artificial hip joint
CPT/HCPCS: 73502